=== PATIENT | female | born 2000 | race Caucasian/White ===

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

== ENCOUNTER 2018-07-06 20:05 | Emergency (ER) | payer OTHER ==
[2018-07-06 20:45] VITALS: BP 130/69
[2018-07-06] MEDS ORDERED: Amoxicillin PO (*) 500 MG CAP PO ONE (21:10)
[2018-07-06] MEDS ORDERED: Ibuprofen TAB* 400 MG PO ONE (21:11)
--- NOTE | 2018-07-06 21:16 | UC ---
Throat Pain/Nasal Jacoby HPI - HPI Summary HPI Summary: Patient is a 18-year-old female who presents emergency department for a sore throat intermittently 2 weeks. Over the last 1-2 days. Pain came worse and she noticed swelling to the back of her throat. She denies fever or chills, nausea, vomiting, abdominal pain. She has no past medical history. She is a student [employer]. Symptoms are mild in severity. Swallowing makes symptoms worse. Nothing makes symptoms better. - History of Current Complaint Chief Complaint: UCRespiratory Stated Complaint: SORE THROAT Time Seen by Provider: 07/06/18 20:49 Hx Obtained From: Patient Hx Last Menstrual Period: IMPLANON Pain Intensity: 7 - Allergies/Home Medications Allergies/Adverse Reactions: Allergies Allergy/AdvReac Type Severity Reaction Status Date / Time No Known Allergies Allergy Verified 07/06/18 20:45 Home Medications: Home Medications Acetaminophen [Acetaminophen Extra Strength] 1,000 mg PO ONCE PRN 07/06/18 [ History Confirmed 07/06/18] PMH/Surg Hx/FS Hx/Imm Hx Previously Healthy: Yes - Surgical History Surgical History: None - Family History Known Family History: Negative: Cardiac Disease, Hypertension, Diabetes - Social History Occupation: Student Lives: Dormitory/Roommates Alcohol Use: Occasionally Substance Use Type: None Smoking Status (MU): Never Smoked Tobacco Review of Systems Constitutional: Negative Skin: Negative Eyes: Negative ENT: Sore Throat Respiratory: Negative Cardiovascular: Negative Gastrointestinal: Negative Musculoskeletal: Negative Neurological: Negative Is Patient Immunocompromised?: No All Other Systems Reviewed And Are Negative: Yes Physical Exam Triage Information Reviewed: Yes Appearance: Well-Appearing - Patient sitting on bed in no acute distress. Vital Signs: Initial Vital Signs Temp 98.7 F 07/06/18 20:41 Pulse 65 07/06/18 20:41 Resp 16 07/06/18 20:41 BP 130/69 07/06/18 20:41 Pulse Ox 100 07/06/18 20:41 Vital Signs Reviewed: Yes Eyes: Positive: Conjunctiva Clear ENT: Positive: TMs normal, Other - Oropharynx injected with moderate bilateral tonsillar edema and no exudates. Uvula is midline without deviation. No drooling. Voice is mildly muffled sounding. No evidence of peritonsillar abscess. Neck exam: Normal Neck: Positive: Supple, Enlarged Nodes @ - Bilateral anterior cervical lymphadenopathy Respiratory: Positive: Lungs clear, Normal breath sounds Cardiovascular: Positive: RRR, No Murmur Neurological Exam: Normal Skin Exam: Normal Throat Pain/Nasal Course/Dx - Course Course Of Treatment: Pt. presenting with sore throat. Rapid strep is positive. Vitals are stable. No evidence of peritonsillar abscess this time. Started on amoxicillin and Motrin. Advised to follow up with [facility] for reevaluation in 1-2 days. Increase fluids. Advised to go to the emergency department for increased pain, high fevers, vomiting, difficulty swallowing/ breathing or if concerned. Patient understands and agrees with plan. - Differential Dx/Diagnosis Differential Diagnosis/HQI/PQRI: Epiglottitis, Influenza, Laryngitis, Kris's Angina, Peritonsillar Abscess, Pharyngitis, Tonsillitis, URI Provider Diagnoses: 1. Strep pharyngitis Discharge - Sign-Out/Discharge Documenting (check all that apply): Patient Departure All imaging exams completed and their final reports reviewed: No Studies - Discharge Plan Condition: Good Disposition: HOME Patient Education Materials: Strep Throat (ED) Referrals: [facility] - Heladio POLLACK [Primary Care Provider] - Additional Instructions: Schedule a follow up appointment with [facility] for 1-2 days Take medication as directed Increase fluids Go to the ER for difficulty swallowing/breathing, drooling, high fevers, vomiting or if concerned - Billing Disposition and Condition Condition: GOOD Disposition: Home
== END 2018-07-06 21:37 | disposition home or self-care (01) ==
LOC: UCEAST 20:05
DX: J02.0 Streptococcal pharyngitis (principal)
CPT/HCPCS: 87651; 99213; A9270-GY; G0463

== ENCOUNTER 2018-07-09 16:28 | Emergency (ER) | payer OTHER ==
[2018-07-09 16:40] VITALS: BP 122/74
--- NOTE | 2018-07-09 17:20 | UC ---
Throat Pain/Nasal Jacoby HPI - HPI Summary HPI Summary: Started w/ worsening sore throat after being tx'd for strep. taking amox currently. feels that her throat is thick, voice is changing and pain is worse. symptoms worse at night. was here at urgent care on 07/06 and tx'd w/ amox. sheis taking meds as rx'd. - History of Current Complaint Chief Complaint: UCGeneralIllness Stated Complaint: SORE THROAT Time Seen by Provider: 07/09/18 16:56 Hx Obtained From: Patient Hx Last Menstrual Period: years, unk, has Nexplanon ?: No - nexplanon Onset/Duration: Gradual Onset Severity: Moderate Pain Intensity: 7 Pain Scale Used: 0-10 Numeric Associated Signs & Symptoms: Positive: Dysphagia, Hoarseness. Negative: Drooling, Fever - Epiglottits Risk Factors Epiglottis Risk Factors: Muffled Voice, Worse w/Recumbent Position - Allergies/Home Medications Allergies/Adverse Reactions: Allergies Allergy/AdvReac Type Severity Reaction Status Date / Time No Known Allergies Allergy Verified 07/09/18 16:40 PMH/Surg Hx/FS Hx/Imm Hx Previously Healthy: Yes - Surgical History Surgical History: None - Family History Known Family History: Negative: Cardiac Disease, Hypertension, Diabetes - Social History Alcohol Use: Occasionally Substance Use Type: None Smoking Status (MU): Never Smoked Tobacco Review of Systems All Other Systems Reviewed And Are Negative: Yes Constitutional: Positive: Negative ENT: Positive: Sore Throat Respiratory: Positive: Negative Cardiovascular: Positive: Negative Gastrointestinal: Positive: Negative, Other - difficulty swallowing Musculoskeletal: Positive: Other: - no neck pain Is Patient Immunocompromised?: No Physical Exam Triage Information Reviewed: Yes Appearance: Well-Appearing, No Pain Distress Vital Signs: Initial Vital Signs Temp 97.9 F 07/09/18 16:33 Pulse 108 07/09/18 16:33 Resp 16 07/09/18 16:33 BP 122/74 07/09/18 16:33 Pulse Ox 96 07/09/18 16:33 Vital Signs Reviewed: Yes ENT: Positive: Pharyngeal erythema, Tonsillar swelling - L>R, Trismus, Muffled voice. Negative: Uvula midline - uvula to the right Neck: Positive: Nontender, No Lymphadenopathy. Negative: Nuchal Rigidity, Tenderness @ Respiratory Exam: Normal Cardiovascular Exam: Normal Neurological: Positive: Alert - speech is normal and speaking in full sentences but voice is muffled. Throat Pain/Nasal Course/Dx - Course Assessment/Plan: Recently tx'd Strep on Amox w/ worsening sore throat and change in voice. Uvula Not midline, L tonsillar swelling. cannot r/o peritonsillar abscess. afebrile and airway is good. - Differential Dx/Diagnosis Differential Diagnosis/HQI/PQRI: Peritonsillar Abscess, Pharyngitis, Tonsillitis Provider Diagnoses: Peritonsiller Abscess Discharge - Sign-Out/Discharge Documenting (check all that apply): Patient Departure All imaging exams completed and their final reports reviewed: No Studies - Discharge Plan Condition: Fair Disposition: HOME-RECOMMEND TO ED Patient Education Materials: Peritonsillar Abscess (ED) Referrals: No Primary Care Phys,NOPCP [Primary Care Provider] - Additional Instructions: I recommend that you go to the emergency room for evaluation. - Billing Disposition and Condition Condition: FAIR Disposition: Home-Recommend to ED
== END 2018-07-09 17:30 | disposition home health service (06) ==
LOC: UCEAST 16:28
DX: J36 Peritonsillar abscess (principal)
CPT/HCPCS: 99212; G0463

== ENCOUNTER 2018-07-09 17:46 | Emergency (ER) | payer OTHER ==
[2018-07-09] MEDS ORDERED: NS 0.9% 1000 ML* 1,000 ML IV ONE ×2 (17:57→19:01)
[2018-07-09] MEDS ORDERED: Morphine INJ* 2 MG/ML 1 ML SYRINGE (TWO MG - NEW SYRINGE VERSION) IV ONE (17:58)
[2018-07-09] MEDS ORDERED: Ketorolac INJ* 30 MG/ML 1 ML VIAL IV PUSH ONE (17:58)
[2018-07-09] MEDS ORDERED: Ondansetron INJ* 2 MG/ML VIAL IV ONE (17:58)
[2018-07-09] MEDS ORDERED: Lidocaine 2% EPI 1:200000 MPF*10-20 ML VIAL INJ ONE (17:59)
[2018-07-09] MEDS ORDERED: Benzocaine/Butamben/Tetracain* SPRAY TOPICAL ONE (17:59)
[2018-07-09] MEDS ORDERED: Clindamycin 600 MG IVPREMIX(* 600 MG/50 ML SDV IV ONE (18:02)
[2018-07-09] MEDS ORDERED: Dexamethasone IV* 4 MG/ML 1 ML (4 MG) IV SLOW PU ONE (18:10)
--- NOTE | 2018-07-09 18:11 | ED ---
Throat Pain/Nasal Congestion - HPI Summary HPI Summary: 18-year-old female presents with worsening sore throat over the past 4 days. States she was diagnosed with strep 3 days ago was started on amoxicillin. She states that her sore throat has been getting worse on the left. She admits to shortness breath at night. No drooling. States she still able to swallow but is painful. No chest pain. She states that she has history of strep. Has no medical conditions. Has been taking ibuprofen for pain. She's been having intermittent fevers. No sinus congestion or postnasal drip. - History of Current Complaint Chief Complaint: EDThroatPain Time Seen by Provider: 07/09/18 17:51 - Allergies/Home Medications Allergies/Adverse Reactions: Allergies Allergy/AdvReac Type Severity Reaction Status Date / Time No Known Allergies Allergy Verified 07/09/18 17:50 PMH/Surg Hx/FS Hx/Imm Hx Endocrine/Hematology History: Denies: Hx Diabetes, Hx Thyroid Disease Cardiovascular History: Denies: Hx Hypertension Respiratory History: Denies: Hx Asthma, Hx Chronic Obstructive Pulmonary Disease (COPD) GI History: Denies: Hx Ulcer Sensory History: Reports: Hx Contacts or Glasses Opthamlomology History: Reports: Hx Contacts or Glasses Neurological History: Reports: Other Neuro Impairments/Disorders - hx of syncopal episodes, concussion - Immunization History Date of Tetanus Vaccine: up to date Infectious Disease History: No Infectious Disease History: Denies: Hx Hepatitis, Hx Human Immunodeficiency Virus (HIV), Traveled Outside the [place] in Last 30 Days - Family History Known Family History: Negative: Cardiac Disease, Hypertension, Diabetes - Social History Alcohol Use: Occasionally Substance Use Type: Reports: None Smoking Status (MU): Never Smoked Tobacco Review of Systems Positive: Fever Positive: Sore Throat Negative: Chest Pain Positive: Shortness Of Breath. Negative: Cough All Other Systems Reviewed And Are Negative: Yes Physical Exam Triage Information Reviewed: Yes Vital Signs On Initial Exam: Initial Vitals Temp Pulse Resp BP Pulse Ox 98.6 F 103 18 108/73 99 07/09/18 17:47 07/09/18 17:47 07/09/18 17:47 07/09/18 17:47 07/09/18 17:47 Vital Signs Reviewed: Yes Appearance: Positive: Well-Appearing Skin: Positive: Warm, Dry Head/Face: Positive: Normal Head/Face Inspection Eyes: Positive: Normal, EOMI, TY, Conjunctiva Clear ENT: Positive: Pharyngeal erythema, Tonsillar swelling - left greater than right , Tonsillar exudate, Trismus, Muffled voice. Negative: Uvula midline - shifted to right Neck: Positive: Supple, Nontender, No Lymphadenopathy Respiratory/Lung Sounds: Positive: Clear to Auscultation, Breath Sounds Present Cardiovascular: Positive: Normal, RRR Musculoskeletal: Positive: Normal Neurological: Positive: Normal Psychiatric: Positive: Normal Procedures - Incision and Drainage peritonsillar Site: peritonsillar Anesthesia: Topical, Local Instrument(s): Needle Diagnostics - Vital Signs Vital Signs Temp Pulse Resp BP Pulse Ox 07/09/18 17:47 98.6 F 103 18 108/73 99 - Laboratory Result Diagrams: 07/09/18 18:11 07/09/18 18:11 Lab Statement: Any lab studies that have been ordered have been reviewed, and results considered in the medical decision making process. Re-Evaluation - Re-Evaluation First Eval Re-Evaluation Time: 19:29 Change: Improved Comment: feeling better, still managing airway well EENT Course/Dx - Course Course Of Treatment: 18-year-old female presents with worsening sore throat over the past 4 days. States she was diagnosed with strep 3 days ago was started on amoxicillin. She states that her sore throat has been getting worse on the left. She admits to shortness breath at night. No drooling. States she still able to swallow but is painful. No chest pain. She states that she has history of strep. Has no medical conditions. Has been taking ibuprofen for pain. She's been having intermittent fevers. No sinus congestion or postnasal drip. On exam has tonsil left greater than right. Uvula shifted to the right. Has a muffled voice. is managing her airway well. Gave the patient Clinda Decadron and Toradol. wbc normal. monospot negative. attempted needle aspiration and only got blood. spoke with dr chase said to d/c with steriod and antibiotics. told to call office tomorrow morning for appointment. patient understand and agrees with plan. - Differential Diagnoses Differential Diagnoses: Pharyngitis, Tonsilitis, Other - peritonsillar abscess - Diagnoses Provider Diagnoses: Peritonsillar abscess Discharge - Sign-Out/Discharge Documenting (check all that apply): Patient Departure - Discharge Plan Condition: Good Disposition: HOME Prescriptions: Clindamycin Cap(NF) [Clindamycin Cap 300 mg Cap(NF)] 300 mg PO TID #20 cap predniSONE TAB* [Deltasone TAB*] 50 mg PO DAILY #4 tab Patient Education Materials: Peritonsillar Abscess (ED) Referrals: Ryan Landeros MD [Medical Doctor] - Additional Instructions: Take clindamycin three times a day for 7 days Take steroid once a day for 4 days Follow up with ENT, call office at 8:30 tomorrow for appointment Can gargle salt water Can use cough drops or products such as cloraseptic spray Return to ED if develop fever does not respond to Tylenol or ibuprofen, inability to swallow, or difficulty breathing or any new or worsening symptoms - Billing Disposition and Condition Condition: GOOD Disposition: Home
[2018-07-09] MEDS ORDERED: Morphine VIAL* 4 MG/ML VIAL (1 ml vial) IV ONE (18:12)
[2018-07-09 18:21] LABS: ABS Basophils 0.1 10^3/ul (0-0.2); ABS Eosinophils 0 10^3/ul (0-0.6); ABS Lymphocytes 3.9 10^3/ul (1.0-4.8); ABS Monocytes 1.1 10^3/ul (0-0.8); ABS Neutrophils 5.5 10^3/ul (1.5-7.7); ABS Nucleated RBC 0 10^3/ul; Eosinophil % 0.3 % (0-6); Hematocrit 38 % (35-47); Hemoglobin 12.6 g/dl (12.0-16.0); Lymphocyte % 36.8 % (25-47); Mean Corpuscular HGB Conc 33 g/dl (31-36); Mean Corpuscular Hemoglobin 28 pg (27-31); Mean Corpuscular Volume 85 fL (80-97); Mean Platelet Volume 7.2 fL (7.4-10.4); Nucleated Red Blood Cells % 0.1; Platelet Count 286 10^3/ul (150-450); Red Blood Count 4.45 10^6/ul (4.00-5.40); Red Cell Distribution Width 14 % (10.5-15); White Blood Count 10.6 10^3/ul (3.5-10.8)
[2018-07-09] MEDS ORDERED: Lidocaine 2% VISCOUS* 15 ML UDC PO ONE (18:23)
[2018-07-09 21:09] VITALS: BP 104/66
== END 2018-07-09 21:08 | disposition home or self-care (01) ==
LOC: ED 17:46
DX: J36 Peritonsillar abscess (principal); J02.9 Acute pharyngitis, unspecified; R06.02 Shortness of breath; R50.9 Fever, unspecified
CPT/HCPCS: 10060; 36415; 80053; 83605; 84702; 85025; 86308; 96361; 96374; 96375; 96376; 99282; A9270-GY; J1100; J1885; J2270; J2405